=== PATIENT | male | born 1980 | race Caucasian/White ===

== ENCOUNTER 2017-08-30 00:57 | Emergency (ER) | payer SELFPAY ==
[~2017-08-30] VITALS: Ht 167.6 cm; Wt 83.6 kg
[2017-08-30 01:05] VITALS: Ht 167.6 cm; Wt 83.6 kg
[2017-08-30 01:12] LABS: HEMATOCRIT 48.2 % (42-52); HEMOGLOBIN 17.3 g/dL (14.0-18.0); MEAN CELL VOLUME 84.1 fL (80-100); MEAN CORPUSCULAR HEMOGLOBIN 30.2 pg (25-34); MEAN CORPUSCULAR HGB CONC 35.9 g/dl (32-36); MEAN PLATELET VOLUME 10.8 fL (7.4-10.4); PLATELET COUNT 260 K/uL (130-400); RED CELL DISTRIBUTION WIDTH CV 13.2 % (11.5-14.5); RED CELL DISTRIBUTION WIDTH SD 39.7 fL (36.4-46.3); WHITE BLOOD COUNT 12.53 K/uL (4.8-10.8)
[2017-08-30 01:21] LABS: INR 1.1 (0.9-1.1); PTT PATIENT 26.5 SECONDS (21.0-31.0)
[2017-08-30] MEDS ORDERED: KETOROLAC TROMETHAMINE 30 MG/ML VIAL IV STA (01:28)
[2017-08-30] MEDS ORDERED: SODIUM CHLORIDE 0.9% 1000ML 1,000 ML IV ONE (01:30)
[2017-08-30 01:36] LABS: ALBUMIN 4.4 gm/dl (3.4-5.0); CALCIUM 9.4 mg/dl (8.5-10.1); CREATININE 1.43 mg/dl (0.60-1.40); POTASSIUM 3.2 mmol/L (3.5-5.1)
[2017-08-30 01:40] LABS: CKMB 1.2 ng/ml (0.5-3.6); TOTAL PROTEIN 8.8 gm/dl (6.4-8.2)
[2017-08-30] MEDS ORDERED: OPTIRAY 320 IV PRN (02:15)
[2017-08-30 04:48] VITALS: BP 115/81; PULSE 72; TEMP 36.8; O2SAT 96
--- NOTE | 2017-08-30 06:48 | DIAGNOSTIC IMAGING REPORT ---
CHEST ONE VIEW PORTABLE CLINICAL HISTORY: Atypical left-sided chest pain COMPARISON STUDY: No previous studies for comparison. FINDINGS: The cardiac and mediastinal contours are normal. There is no evidence of focal pulmonary consolidation. There is no evidence of failure. No pleural effusions are visualized.[ IMPRESSION: No active disease in the chest. Electronically signed by: Chucho Dixon M.D. 08/30/2017 6:46 AM Dictated Date/Time: 08/30/2017 6:46 AM
--- NOTE | 2017-08-30 07:30 | DIAGNOSTIC IMAGING REPORT ---
CT ANGIOGRAM OF THE CHEST CLINICAL HISTORY: Atypical chest pain. Palpitations. COMPARISON STUDY: Chest x-ray dated 08/30/2017. TECHNIQUE: Following the IV administration of 81 cc of Optiray 320, CT angiogram of the chest was performed from the upper abdomen to the thoracic inlet utilizing the pulmonary embolus protocol. Images are reviewed in the axial, sagittal, and coronal planes. 3-D MIPS images are created and assessed. IV contrast was administered without complication. A dose lowering technique was utilized adhering to the principles of ALARA. CT DOSE: 312.66 mGy.cm FINDINGS: Thyroid: Imaged portions of the thyroid gland are normal in size and attenuation. Thoracic aorta: The thoracic aorta is normal in caliber and demonstrates standard 3-vessel arch anatomy. No dissection is seen. Pulmonary vasculature: The pulmonary trunk is normal in caliber. There are no filling defects identified in main, lobar, or segmental pulmonary branches to suggest pulmonary embolus. Heart: The heart is normal in size and configuration, and without pericardial effusion. Lungs and pleural spaces: Evaluation of the lung parenchyma is degraded by motion artifact. No airspace consolidation or pleural effusion is identified. Mild diffuse peribronchial thickening suggests reactive airway disease. The trachea and central airways are clear. A 3 mm left lower lobe pulmonary nodule is seen on image #88. Mediastinum: There is no mediastinal lymphadenopathy. Mary Lou: Clear. Axillae: There is no axillary lymphadenopathy. Upper abdomen: A 1.8 cm cyst is noted in the right lobe of the liver. Partially visualized upper abdominal viscera is otherwise within normal limits. Skeletal structures: No lytic or blastic bony lesions are seen. IMPRESSION: 1. There is no evidence of pulmonary embolus in the main, lobar, or segmental pulmonary arteries. 2. There is no airspace consolidation or pleural effusion. Mild diffuse peribronchial thickening suggests reactive airway disease. Clinical correlation will be required. 3. There is a 3 mm pulmonary nodule at the left lung base. This is of low suspicion and follow-up should be based on clinical grounds. Electronically signed by: Idris Chand M.D. 08/30/2017 7:29 AM Dictated Date/Time: 08/30/2017 7:25 AM
--- NOTE | 2017-08-30 22:43 | EMERGENCY ROOM VISIT NOTE ---
History First contact with patient: 01:23 Chief Complaint: CHEST PAIN Stated Complaint: CHEST PAIN Nursing Triage Summary: Patient presents ALS for evaluation of left sided chest pain that began around 1630 yesterday. Patient states he was recently dx with a lung mass and has not followed up. [facility] SHAGGER cough. States, "This may be anxiety." History of Present Illness The patient is a 37 year old male who presents to the Emergency Room with complaints of left sided chest pain that began about 16 hours ago. The patient states he recently moved to the area because he has family here. He also states his state patrol officer is in this area. Evidently the patient had similar symptoms to this about a week ago and had a CT scan performed at an unknown hospital that showed a possible pulmonary mass. The patient does not have a primary care physician locally. He states the symptoms do take his breath away. He has a nonproductive cough, but does smoke marijuana on a daily basis. He considers himself otherwise usually healthy. He rates his pain a 10/10. Review of Systems More than 10 systems were reviewed and otherwise negative with the exception of history of present illness. Past Medical/Surgical History No chronic medical disease Social History Smoking Status: Current Every Day Smoker Current/Historical Medications No Active Prescriptions or Reported Meds Physical Exam Vital Signs Date Time Temp Pulse Resp B/P (MAP) Pulse Ox O2 Delivery O2 Flow Rate FiO2 08/30/17 04:48 36.8 72 18 115/81 96 Room Air 08/30/17 04:10 84 18 137/79 96 Room Air 08/30/17 02:17 122 18 117/98 96 Room Air 08/30/17 01:09 96 Room Air 08/30/17 01:05 93 Room Air 08/30/17 01:05 36.7 107 18 117/98 93 Room Air 08/30/17 01:03 104 Physical Exam VITALS: Vitals are noted on the nurse's note and reviewed by myself. Vital signs stable. GENERAL: White male who appears to be under the influence of drugs or alcohol HEAD: Normocephalic atraumatic. EARS: External ear normal. External auditory canals clear, tympanic membranes pearly norton without erythema or effusion bilaterally. EYES: Pupils equal round and reactive to light and accommodation. Conjunctivae without injection, sclerae without icterus. Extraocular movements intact. NOSE: Patent, turbinates without inflammation or discharge. MOUTH: Mucous membranes moist. Tonsils are not enlarged. Pharynx without erythema, blood, or exudate. Uvula midline. Airway patent. NECK: Supple without nuchal rigidity. No lymphadenopathy. No thyromegaly. Cervical spine is nontender. HEART: Regular rate and rhythm without murmurs gallops or rubs. LUNGS: Clear to auscultation bilaterally without wheezes, rales or rhonchi. No retractions or accessory muscle use. ABDOMEN: Positive normal bowel sounds x 4. Soft, nontender, without masses or organomegaly. No guarding or rebound tenderness. Medical Decision & Procedures ER Provider Diagnostic Interpretation: CHEST ONE VIEW PORTABLE CLINICAL HISTORY: Atypical left-sided chest pain COMPARISON STUDY: No previous studies for comparison. FINDINGS: The cardiac and mediastinal contours are normal. There is no evidence of focal pulmonary consolidation. There is no evidence of failure. No pleural effusions are visualized.[ IMPRESSION: No active disease in the chest. CT ANGIOGRAM OF THE CHEST CLINICAL HISTORY: Atypical chest pain. Palpitations. COMPARISON STUDY: Chest x-ray dated 08/30/2017. TECHNIQUE: Following the IV administration of 81 cc of Optiray 320, CT angiogram of the chest was performed from the upper abdomen to the thoracic inlet utilizing the pulmonary embolus protocol. Images are reviewed in the axial, sagittal, and coronal planes. 3-D MIPS images are created and assessed. IV contrast was administered without complication. A dose lowering technique was utilized adhering to the principles of ALARA. CT DOSE: 312.66 mGy.cm FINDINGS: Thyroid: Imaged portions of the thyroid gland are normal in size and attenuation. Thoracic aorta: The thoracic aorta is normal in caliber and demonstrates standard 3-vessel arch anatomy. No dissection is seen. Pulmonary vasculature: The pulmonary trunk is normal in caliber. There are no filling defects identified in main, lobar, or segmental pulmonary branches to suggest pulmonary embolus. Heart: The heart is normal in size and configuration, and without pericardial effusion. Lungs and pleural spaces: Evaluation of the lung parenchyma is degraded by motion artifact. No airspace consolidation or pleural effusion is identified. Mild diffuse peribronchial thickening suggests reactive airway disease. The trachea and central airways are clear. A 3 mm left lower lobe pulmonary nodule is seen on image #88. Mediastinum: There is no mediastinal lymphadenopathy. Mary Lou: Clear. Axillae: There is no axillary lymphadenopathy. Upper abdomen: A 1.8 cm cyst is noted in the right lobe of the liver. Partially visualized upper abdominal viscera is otherwise within normal limits. Skeletal structures: No lytic or blastic bony lesions are seen. IMPRESSION: 1. There is no evidence of pulmonary embolus in the main, lobar, or segmental pulmonary arteries. 2. There is no airspace consolidation or pleural effusion. Mild diffuse peribronchial thickening suggests reactive airway disease. Clinical correlation will be required. 3. There is a 3 mm pulmonary nodule at the left lung base. This is of low suspicion and follow-up should be based on clinical grounds. Laboratory Results 08/30/17 00:28 08/30/17 00:28 Test 08/30/17 00:28 08/30/17 01:09 08/30/17 01:37 Red Blood Count 5.73 M/uL (4.7-6.1) Mean Corpuscular Volume 84.1 fL (80-100) Mean Corpuscular Hemoglobin 30.2 pg (25-34) Mean Corpuscular Hemoglobin Concent 35.9 g/dl (32-36) RDW Standard Deviation 39.7 fL (36.4-46.3) RDW Coefficient of Variation 13.2 % (11.5-14.5) Mean Platelet Volume 10.8 fL (7.4-10.4) Prothrombin Time 11.2 SECONDS (9.0-12.0) Prothromb Time International Ratio 1.1 (0.9-1.1) Activated Partial Thromboplast Time 26.5 SECONDS (21.0-31.0) Partial Thromboplastin Ratio 1.0 D-Dimer 700 ug/L FEU (0-500) Anion Gap 11.0 mmol/L (3-11) Est Creatinine Clear Calc Drug Dose 73.1 ml/min Estimated GFR () 73.0 Estimated GFR (Non- 63.0 BUN/Creatinine Ratio 10.3 (10-20) Calcium Level 9.4 mg/dl (8.5-10.1) Total Bilirubin 1.0 mg/dl (0.2-1) Aspartate Amino Transf (AST/SGOT) 20 U/L (15-37) Alanine Aminotransferase (ALT/SGPT) 27 U/L (12-78) Alkaline Phosphatase 91 U/L (45-117) Total Creatine Kinase 334 U/L (39-308) Creatine Kinase MB 1.2 ng/ml (0.5-3.6) Creatine Kinase MB Ratio 0.4 (0-3.0) Total Protein 8.8 gm/dl (6.4-8.2) Albumin 4.4 gm/dl (3.4-5.0) Globulin 4.4 gm/dl (2.5-4.0) Albumin/Globulin Ratio 1.0 (0.9-2) Bedside Troponin I < 0.030 ng/ml (0-0.045) Ethyl Alcohol mg/dL < 3.0 mg/dl (0-3) Medications Administered Medications (Trade) Dose Ordered Sig/Yudelka Route Start Time Stop Time Status Last Admin Dose Admin Sodium Chloride 1,000 ml @ 999 mls/hr Q1H1M ONCE IV 08/30/17 01:30 08/30/17 02:30 DC 08/30/17 01:40 999 MLS/HR Ketorolac Tromethamine (Toradol Inj) 30 mg NOW STAT IV 08/30/17 01:28 08/30/17 01:29 DC 08/30/17 01:40 30 MG ECG Change: Normal sinus rhythm @98 bpm Nonspecific T wave abnormality Abnormal ECG No previous ECGs available Confirmed by Zachariah Canales ([id number]) on 08/30/2017 1:18:07 PM ED Course Physical exam and history were performed. Nursing notes, EMR, and Medication List were personally reviewed. Patient appears to have chest pain bring him to the emergency department via ambulance. EKG was performed and was normal sinus rhythm at 98 beats for minute with nonspecific T wave abnormality. There is no distinct ST elevation per my interpretation. IV access was established and labs are obtained. The patient was hydrated and medicated as above. He is placed on the monitor worker. The patient's blood work does not show a significantly elevated white blood cell count, anemia, bandemia, or significant electrolyte imbalance. Troponin 1 is negative. D-dimer is elevated and CT scan was performed. The patient's chest x-ray does not show significant acute findings. Angiogram was without evidence of PE and does confirm what appears to be a pulmonary nodule. The patient was monitored for several hours here in the emergency Department. He appears to be under the influence of some drug or substance. His alcohol was negative. The patient refused to give a urine sample in the department. Overall he does not appear to need additional ER care and is stable for discharge. I question if the patient may be homeless as he does not have a local address, and appears to have some sort of legal issues as his state patrol officer is local. I discussed the case with case management who will provide him information for local follow-up. The patient was otherwise invited back to the ER with any new, worsening or concerning symptoms. The chart was completed utilizing [email or web address] Speech Voice Recognition Software. Grammatical errors, random word insertions, pronoun errors, and incomplete sentences are an occasional consequence of this system due to software limitations, ambient noise, and hardware issues. Any formal questions or concerns about the content, text, or information contained within the body of this dictation should be directly addressed to the provider for clarification. . Medical Decision Differential diagnosis includes, but is not limited to: Myocardial infarction, dysrhythmia, pericarditis, pneumothorax, aortic aneurysm/dissection, DVT/PE, anxiety, GERD, PUD, electrolyte imbalance, thyroid disorder, pneumonia, bronchitis, pancreatitis, and others Impression Primary Impression: Chest pain Additional Impression: Shortness of breath Departure Information Dispostion Home / Self-Care Condition GOOD Prescriptions No Active Prescriptions or Reported Meds Forms Call Back Authorization, HOME CARE DOCUMENTATION FORM, IMPORTANT VISIT INFORMATION Patient Instructions My [facility] Additional Instructions You were seen and evaluated today on an emergency basis only. This is not a substitute for, or an effort to provide, complete comprehensive medical care. It is not possible to recognize and treat all injuries or illnesses in a single emergency department visit. For this reason it is recommended that you followup with a primary care physician for ongoing care and evaluation in the next week. Please use the resources provided by case management to help make an appointment. For baseline pain relief you may alternate ibuprofen and acetaminophen every 4 hours for pain control. Take 600 mg ibuprofen (Advil) and then 4 hours later take 1000 mg acetaminophen (Tylenol). Do not take more than 3000 mg acetaminophen in a single day. Drink plenty of fluids and remain well hydrated. You are welcome to return to the emergency department anytime with new, worsening, or concerning symptoms. Problem Qualifiers
== END 2017-08-30 05:03 | disposition home or self-care (01) ==
LOC: C.EDC 00:58 → C.EDA 05:03
DX: R07.9 Chest pain, unspecified (principal); R06.02 Shortness of breath; F12.10 Cannabis abuse, uncomplicated; F17.210 Nicotine dependence, cigarettes, uncomplicated